=== PATIENT | male | born 1970 | race Hispanic/Latino ===

== ENCOUNTER 2023-07-09 16:50 | Inpatient (IN) | payer SELFPAY ==
[~2023-07-09 16:50] MED LIST: Iopamidol-370 76% 500 ML MDV (1 ML CHARGE) ONE
[2023-07-09] MEDS ORDERED: Lidocaine 1% PF 5 ML VIAL ONE (17:19)
[2023-07-09] MEDS ORDERED: Piperacillin/Tazobactam 4.5 GM VIAL ONE (17:27)
[2023-07-09] MEDS ORDERED: Sodium Chloride 0.9% 100 ML ONE (17:27)
[2023-07-09 17:52] LABS: #Basophils 0.1 thou/uL (0.0-0.2); #Eosinphils 0.2 thou/uL (0.0-0.7); #Monocytes 0.9 thou/uL (0.11-0.59); #Neutrophils 13.3 thou/uL (1.40-6.50); %Basophils 0.4 % (0.0-1.0); %Eosinophils 0.9 % (0.0-10.0); %Lymphocytes 13.4 % (21.0-51.0); %Monocytes 5.5 % (0.0-10.0); %Neutrophils 79.2 % (42.0-75.0); ALT (SGPT) 10 U/L (8-55); AST (SGOT) 10 U/L (5-34); Albumin 3.4 g/dL (3.5-5.0); Alkaline Phosphatase 81 U/L (40-110); Anion Gap 10 mmol/L (10-20); BUN (Urea Nitrogen) 13 mg/dL (8.4-25.7); Bilirubin, Total 0.8 mg/dL (0.2-1.2); Calc. Creatinine Clearance 0 mL/min (70-130); Calcium 9.1 mg/dL (7.8-10.44); Carbon Dioxide 28 mmol/L (22-29); Chloride 101 mmol/L (98-107); Estimated GFR 96; Globulin 4.3 g/dL (2.4-3.5); Glucose 276 mg/dL (70-105); Hematocrit 42.4 % (42.0-52.0); Hemoglobin 15.3 g/dL (14.0-18.0); Mean Corpuscular HGB CONC 36.1 g/dL (32.0-36.0); Mean Corpuscular Hemoglobin 31.7 pg (27.0-31.0); Mean Platelet Volume 10.5 fL (7.4-10.4); Platelet Count 361 10x3/uL (130-400); Potassium 3.9 mmol/L (3.5-5.1); Protein, Total 7.7 g/dL (6.0-8.3); RBC Distribution Width 11.3 % (11.5-14.5); Red Blood Cell (RBC) Count 4.82 mill/uL (4.70-6.10); Sodium 135 mmol/L (136-145); White Blood Cell (WBC) Count 16.8 10x3/uL (4.8-10.8)
[2023-07-09 17:54] LABS: CRP (Inflammatory) 7.69 mg/dL (= or < 0.5); Magnesium 2.1 mg/dL (1.6-2.6)
[2023-07-09] MEDS ORDERED: Vancomycin (BATCH) 2 GM/500 ML BAG ONE (18:55)
[2023-07-09] MEDS ORDERED: Dextrose 5% in Water 1,000 ML IV PRN (19:53)
[2023-07-09] MEDS ORDERED: Ondansetron PF 4 MG/2 ML Vial IVP PRN (19:53)
[2023-07-09] MEDS ORDERED: Dextrose 50% Abboject 50 ML SYRINGE SLOW IVP PRN (19:53)
[2023-07-09] MEDS ORDERED: Glucagon 1 MG/ML KIT IM PRN (19:53)
[2023-07-09] MEDS ORDERED: Enoxaparin 40 MG (0.4 mL) SYRINGE SC SCH (20:00)
[2023-07-09 21:00] LABS: Hemoglobin A1c 10.3 % (4.0-6.0)
[2023-07-09 21:14] VITALS: BMI 31.9
[2023-07-09] MEDS: Lisinopril 10 MG TAB PO SCH (21:48)
[2023-07-09] MEDS: HYDROcodone/Acetaminophen 10/325 mg Tablet PO PRN (21:48)
[2023-07-09] MEDS: HumaLOG 300 UNITS/3 ML VIAL SC PRN (21:49)
[2023-07-09] MEDS: Vancomycin 1 GM in Sodium Chloride 0.9% 250 ML 250 ML IVPB SCH (23:37)
[2023-07-09] MEDS: Piperacillin/Tazobactam 4.5 GM in Sodium Chloride 0.9% 100 ML IVPB SCH (23:38)
[2023-07-10] MEDS: Vancomycin (BATCH) 1.25 GM in Premix 1 BAG IVPB SCH (05:04)
[2023-07-10] MEDS: HumaLOG 300 UNITS/3 ML VIAL SC PRN (05:54)
[2023-07-10] MEDS ORDERED: Morphine 4 MG/ML VIAL SLOW IVP SCH (06:15)
[2023-07-10] MEDS: Lisinopril 10 MG TAB PO SCH (09:09)
[2023-07-10] MEDS: FLU VACC QS2023-24(6MOS UP)/PF 60 MCG/0.5 ML SYRINGE IM ONE (09:09)
[2023-07-10] MEDS ORDERED: CABG-Clindamycin/D5W 900 MG in Premix 1 BAG IVPB SCH (10:30)
[2023-07-10 10:44] LABS: #Basophils 0.1 thou/uL (0.0-0.2); #Eosinphils 0.1 thou/uL (0.0-0.7); #Neutrophils 14.7 thou/uL (1.40-6.50); %Basophils 0.3 % (0.0-1.0); %Eosinophils 0.6 % (0.0-10.0); %Lymphocytes 14.1 % (21.0-51.0); %Monocytes 5.5 % (0.0-10.0); %Neutrophils 78.9 % (42.0-75.0); Hematocrit 41.1 % (42.0-52.0); Hemoglobin 14.5 g/dL (14.0-18.0); Mean Corpuscular HGB CONC 35.3 g/dL (32.0-36.0); Mean Corpuscular Hemoglobin 31.7 pg (27.0-31.0); Mean Corpuscular Volume 89.7 fl (78.0-98.0); Mean Platelet Volume 10.1 fL (7.4-10.4); Platelet Count 335 10x3/uL (130-400); RBC Distribution Width 11.6 % (11.5-14.5); Red Blood Cell (RBC) Count 4.58 mill/uL (4.70-6.10)
[2023-07-10] MEDS ORDERED: fentaNYL PF 100 MCG/2 ML SYRINGE ONE (11:05)
[2023-07-10] MEDS ORDERED: Ondansetron PF 4 MG/2 ML Vial ONE (11:06)
[2023-07-10] MEDS ORDERED: Lidocaine 1% PF 5 ML VIAL ONE (11:06)
[2023-07-10] MEDS ORDERED: PROPOFOL 20 ML ONE ×2 (11:06→11:21)
[2023-07-10 11:20] LABS: Anion Gap 15 mmol/L (10-20); BUN (Urea Nitrogen) 13 mg/dL (8.4-25.7); Calc. Creatinine Clearance 122 mL/min (70-130); Calcium 8.7 mg/dL (7.8-10.44); Carbon Dioxide 24 mmol/L (22-29); Chloride 103 mmol/L (98-107); Estimated GFR 103; Glucose 189 mg/dL (70-105); Sodium 138 mmol/L (136-145)
[2023-07-10] MEDS ORDERED: PHENYLEPHRINE-NS 100 MCG/ML 10 ML SYRINGE ONE (11:35)
[2023-07-10] MEDS ORDERED: Promethazine HCl 25 MG/ML VIAL IM PRN ×2 (11:55→11:58)
[2023-07-10] MEDS ORDERED: fentaNYL 50 mcg/mL 1 mL Vial SLOW IVP PRN (11:55)
[2023-07-10] MEDS ORDERED: Ondansetron PF 4 MG/2 ML Vial IVP PRN (11:55)
[2023-07-10] MEDS ORDERED: Ipratropium/Albuterol 3 ML NEB NEB PRN (11:55)
[2023-07-10] MEDS ORDERED: Ondansetron HCl/PF 4 MG/2 ML Vial IVP PRN (11:58)
[2023-07-10] MEDS ORDERED: Magnevist 469MG/ML 20 ML VIAL ONE (12:08)
[2023-07-10] MEDS ORDERED: Acetaminophen 325 MG TAB ONE (12:50)
[2023-07-10] MEDS: Acetaminophen 325 MG TAB PO PRN (12:52)
[2023-07-10] MEDS: Acetaminophen 500 MG TAB PO SCH (15:45)
[2023-07-10 16:05] LABS: Bacteria/HPF None Seen HPF (None Seen); Bilirubin Negative (Negative); Blood, Urine 2+ (Negative); CAUTI Indications for Culture Fever or rigors; Clarity Clear (Clear); Glucose, Urine (Dipstick) 300 mg/dL (Negative); Ketone, Urine 20 mg/dL (Negative); Leukocyte 250 Leu/uL (Negative); Nitrite Negative (Negative); Protein, Urine (Dipstick) 100 mg/dL (Neg-Trace); Specific Gravity, Urine 1.035 (1.002-1.036); Squamous Epithelial 0-3 HPF (0-3); Urobilinogen Normal mg/dL (Less than 2); WBC/HPF 21-50 HPF (0-3)
[2023-07-10 16:07] LABS: Urine Culture Reflex Yes Yes
[2023-07-10] MEDS: Enoxaparin 40 MG (0.4 mL) SYRINGE SC SCH (19:54)
[2023-07-11 05:57] LABS: #Basophils 0.08 10x3/uL (0.0-0.2); %Basophils 0.4 % (0.0-1.0); %Eosinophils 0.7 % (0.0-10.0); %Lymphocytes 15.6 % (21.0-51.0); %Monocytes 5.8 % (0.0-10.0); Hematocrit 36.2 % (42.0-52.0); Hemoglobin 12.7 g/dL (14.0-18.0); Mean Corpuscular HGB CONC 35.1 g/dL (32.0-36.0); Mean Corpuscular Hemoglobin 31.8 pg (27.0-31.0); Mean Corpuscular Volume 90.7 fL (78.0-98.0); Platelet Count 275 10x3/uL (130-400); RBC Distribution Width 11.5 % (11.5-14.5); Red Blood Cell (RBC) Count 3.99 mill/uL (4.70-6.10)
[2023-07-11 06:15] LABS: Anion Gap 11 mmol/L (10-20); BUN (Urea Nitrogen) 13 mg/dL (8.4-25.7); CRP (Inflammatory) 11.68 mg/dL (= or < 0.5); Calc. Creatinine Clearance 125 mL/min (70-130); Calcium 8.1 mg/dL (7.8-10.44); Carbon Dioxide 26 mmol/L (22-29); Chloride 101 mmol/L (98-107); Estimated GFR 103; Glucose 200 mg/dL (70-105); Potassium 3.5 mmol/L (3.5-5.1); Sodium 134 mmol/L (136-145); Vancomycin, Random 20.2 ug/mL (See Comment)
[2023-07-11] MEDS: Morphine 2 MG/ML VIAL SLOW IVP PRN (10:10)
[2023-07-12] MEDS: Insulin Regular 300 UNITS/3 ML VIAL SC PRN (04:20)
[2023-07-12 05:54] LABS: #Basophils 0.09 10x3/uL (0.0-0.2); %Basophils 0.6 % (0.0-1.0); %Eosinophils 0.8 % (0.0-10.0); %Lymphocytes 14.8 % (21.0-51.0); %Neutrophils 77.1 % (42.0-75.0); Hematocrit 37.3 % (42.0-52.0); Hemoglobin 12.9 g/dL (14.0-18.0); Mean Corpuscular HGB CONC 34.6 g/dL (32.0-36.0); Mean Corpuscular Volume 89.7 fL (78.0-98.0); Mean Platelet Volume 10.1 fL (7.4-10.4); Platelet Count 291 10x3/uL (130-400); RBC Distribution Width 11.4 % (11.5-14.5); Red Blood Cell (RBC) Count 4.16 mill/uL (4.70-6.10)
[2023-07-12 06:13] LABS: Vancomycin, Random 13.7 ug/mL (See Comment)
[2023-07-12 06:22] LABS: Anion Gap 12 mmol/L (10-20); BUN (Urea Nitrogen) 11 mg/dL (8.4-25.7); Calc. Creatinine Clearance 81 mL/min (70-130); Calcium 8.2 mg/dL (7.8-10.44); Carbon Dioxide 25 mmol/L (22-29); Chloride 101 mmol/L (98-107); Estimated GFR 63; Glucose 221 mg/dL (70-105); Potassium 3.3 mmol/L (3.5-5.1); Sodium 135 mmol/L (136-145)
[2023-07-12] MEDS: Piperacillin/Tazobactam 3.375 GM in Sodium Chloride 0.9% 100 ML IVPB SCH (16:29)
[2023-07-12] MEDS: HYDROcodone/Acetaminophen 5/325 mg Tablet PO PRN (20:37)
[2023-07-12] MEDS: Vancomycin 1 GM in Premix 1 BAG IVPB SCH (20:38)
[2023-07-13 05:34] LABS: #Basophils 0.07 10x3/uL (0.0-0.2); %Basophils 0.5 % (0.0-1.0); %Eosinophils 2.2 % (0.0-10.0); %Lymphocytes 14.4 % (21.0-51.0); %Monocytes 5.9 % (0.0-10.0); %Neutrophils 76.4 % (42.0-75.0); Hemoglobin 13.1 g/dL (14.0-18.0); Mean Corpuscular HGB CONC 35.4 g/dL (32.0-36.0); Mean Corpuscular Hemoglobin 31.6 pg (27.0-31.0); Mean Corpuscular Volume 89.4 fL (78.0-98.0); Mean Platelet Volume 10.1 fL (7.4-10.4); Platelet Count 305 10x3/uL (130-400); RBC Distribution Width 11.5 % (11.5-14.5); Red Blood Cell (RBC) Count 4.14 mill/uL (4.70-6.10)
[2023-07-13 05:54] LABS: Anion Gap 13 mmol/L (10-20); BUN (Urea Nitrogen) 14 mg/dL (8.4-25.7); Calc. Creatinine Clearance 67 mL/min (70-130); Carbon Dioxide 24 mmol/L (22-29); Chloride 104 mmol/L (98-107); Estimated GFR 50; Glucose 203 mg/dL (70-105); Potassium 3.4 mmol/L (3.5-5.1); Sodium 138 mmol/L (136-145)
[2023-07-13 05:55] LABS: Vancomycin, Random 19.6 ug/mL (See Comment)
[2023-07-14 03:49] LABS: #Basophils 0.06 10x3/uL (0.0-0.2); %Basophils 0.4 % (0.0-1.0); %Eosinophils 1.4 % (0.0-10.0); %Lymphocytes 14.8 % (21.0-51.0); %Monocytes 6.1 % (0.0-10.0); %Neutrophils 76.8 % (42.0-75.0); Hematocrit 36.4 % (42.0-52.0); Hemoglobin 12.8 g/dL (14.0-18.0); Mean Corpuscular HGB CONC 35.2 g/dL (32.0-36.0); Mean Corpuscular Hemoglobin 31.2 pg (27.0-31.0); Mean Corpuscular Volume 88.8 fL (78.0-98.0); Platelet Count 302 10x3/uL (130-400); RBC Distribution Width 11.4 % (11.5-14.5)
[2023-07-14 04:09] LABS: Vancomycin, Random 17.3 ug/mL (See Comment)
[2023-07-14] MEDS: Vancomycin (BATCH) 1.5 GM in Premix 1 BAG IVPB SCH (06:16)
[2023-07-14] MEDS: Sodium Chloride 0.9% 1,000 ML IV SCH (09:48)
[2023-07-14] MEDS: Carvedilol 6.25 MG TAB PO SCH ×2 (09:49→16:46)
[2023-07-14] MEDS: Amlodipine 5 MG TAB PO SCH (09:49)
[2023-07-15 05:12] LABS: #Basophils 0.07 10x3/uL (0.0-0.2); %Basophils 0.5 % (0.0-1.0); %Eosinophils 1.6 % (0.0-10.0); %Lymphocytes 17.2 % (21.0-51.0); %Monocytes 5.8 % (0.0-10.0); %Neutrophils 74.4 % (42.0-75.0); Hematocrit 35.6 % (42.0-52.0); Hemoglobin 12.2 g/dL (14.0-18.0); Mean Corpuscular HGB CONC 34.3 g/dL (32.0-36.0); Mean Corpuscular Hemoglobin 30.8 pg (27.0-31.0); Mean Corpuscular Volume 89.9 fL (78.0-98.0); Mean Platelet Volume 9.9 fL (7.4-10.4); Platelet Count 303 10x3/uL (130-400); RBC Distribution Width 11.5 % (11.5-14.5); Red Blood Cell (RBC) Count 3.96 mill/uL (4.70-6.10)
[2023-07-15 05:58] LABS: ALT (SGPT) 11 U/L (8-55); AST (SGOT) 19 U/L (5-34); Albumin 2.9 g/dL (3.5-5.0); Alkaline Phosphatase 64 U/L (40-110); Anion Gap 14 mmol/L (10-20); BUN (Urea Nitrogen) 19 mg/dL (8.4-25.7); Bilirubin, Total 0.5 mg/dL (0.2-1.2); Calc. Creatinine Clearance 40 mL/min (70-130); Calcium 8.2 mg/dL (7.8-10.44); Carbon Dioxide 24 mmol/L (22-29); Chloride 105 mmol/L (98-107); Estimated GFR 27; Globulin 3.9 g/dL (2.4-3.5); Glucose 157 mg/dL (70-105); Potassium 3.3 mmol/L (3.5-5.1); Protein, Total 6.8 g/dL (6.0-8.3); Sodium 140 mmol/L (136-145)
[2023-07-16 05:44] LABS: #Basophils 0.08 10x3/uL (0.0-0.2); %Basophils 0.6 % (0.0-1.0); %Lymphocytes 16.4 % (21.0-51.0); %Monocytes 4.8 % (0.0-10.0); %Neutrophils 75.7 % (42.0-75.0); Hematocrit 36.3 % (42.0-52.0); Hemoglobin 12.6 g/dL (14.0-18.0); Mean Corpuscular HGB CONC 34.7 g/dL (32.0-36.0); Mean Corpuscular Hemoglobin 31.2 pg (27.0-31.0); Mean Corpuscular Volume 89.9 fL (78.0-98.0); Platelet Count 293 10x3/uL (130-400); RBC Distribution Width 11.6 % (11.5-14.5); Red Blood Cell (RBC) Count 4.04 mill/uL (4.70-6.10)
[2023-07-16 06:09] LABS: Anion Gap 13 mmol/L (10-20); BUN (Urea Nitrogen) 20 mg/dL (8.4-25.7); Calc. Creatinine Clearance 37 mL/min (70-130); Calcium 8.4 mg/dL (7.8-10.44); Carbon Dioxide 24 mmol/L (22-29); Chloride 106 mmol/L (98-107); Estimated GFR 24; Glucose 137 mg/dL (70-105); Potassium 3.3 mmol/L (3.5-5.1); Sodium 140 mmol/L (136-145)
[2023-07-16 09:51] LABS: Magnesium 2.5 mg/dL (1.6-2.6)
[2023-07-16] MEDS: Amlodipine 5 MG TAB PO SCH (10:05)
[2023-07-16 13:15] LABS: Bacteria/HPF None Seen HPF (None Seen); Bilirubin Negative (Negative); Blood, Urine Trace (Negative); Clarity Clear (Clear); Glucose, Urine (Dipstick) Normal (Negative); Ketone, Urine Trace mg/dL (Negative); Leukocyte Negative Leu/uL (Negative); Nitrite Negative (Negative); Protein, Urine (Dipstick) Negative (Neg-Trace); RBC/HPF 0-3 HPF (0-3); Specific Gravity, Urine 1.006 (1.002-1.036); Squamous Epithelial 0-3 HPF (0-3); Urobilinogen Normal mg/dL (Less than 2); WBC/HPF 0-3 HPF (0-3)
[2023-07-16 13:50] LABS: Creatinine, Urine 42.78 mg/dL (63-166)
[2023-07-16] MEDS: Carvedilol 6.25 MG TAB PO SCH (16:44)
[2023-07-17 04:22] LABS: #Basophils 0.08 10x3/uL (0.0-0.2); %Basophils 0.6 % (0.0-1.0); %Eosinophils 2.3 % (0.0-10.0); %Lymphocytes 15.4 % (21.0-51.0); %Monocytes 4.7 % (0.0-10.0); %Neutrophils 76.5 % (42.0-75.0); Hematocrit 35.5 % (42.0-52.0); Hemoglobin 12.3 g/dL (14.0-18.0); Mean Corpuscular HGB CONC 34.6 g/dL (32.0-36.0); Mean Corpuscular Volume 89.4 fL (78.0-98.0); Mean Platelet Volume 10.1 fL (7.4-10.4); Platelet Count 299 10x3/uL (130-400); RBC Distribution Width 11.7 % (11.5-14.5); Red Blood Cell (RBC) Count 3.97 mill/uL (4.70-6.10)
[2023-07-17 04:42] LABS: Anion Gap 14 mmol/L (10-20); BUN (Urea Nitrogen) 20 mg/dL (8.4-25.7); Calc. Creatinine Clearance 38 mL/min (70-130); Calcium 8.3 mg/dL (7.8-10.44); Carbon Dioxide 25 mmol/L (22-29); Chloride 105 mmol/L (98-107); Estimated GFR 25; Glucose 160 mg/dL (70-105); Potassium 3.3 mmol/L (3.5-5.1); Sodium 141 mmol/L (136-145)
[2023-07-17] MEDS: Potassium Chloride 20 MEQ TAB PO SCH (09:02)
[2023-07-17] MEDS: Amlodipine 5 MG TAB PO SCH ×2 (09:02→10:15)
[2023-07-17 09:34] VITALS: TEMP 98.9
[2023-07-17 16:08] VITALS: BP 156/89
[2023-07-18] MEDS ORDERED: Amlodipine 5 MG TAB PO SCH (09:00)
== END 2023-07-17 18:25 | disposition home or self-care (01) | DRG 854 ==
LOC: ERS 16:50 → T4-B 19:56
PROVIDERS: ADMIT Internal Medicine; ATTEND Hospitalist
PROC: 3E03329 Introduction of Other Anti-infective into Peripheral Vein, Percutaneous Approach (ICD-10-PCS; 2023-07-09)
PROC: 0JBR0ZZ Excision of Left Foot Subcutaneous Tissue and Fascia, Open Approach (ICD-10-PCS; principal; 2023-07-10)
PROC: 0J9R0ZZ Drainage of Left Foot Subcutaneous Tissue and Fascia, Open Approach (ICD-10-PCS; 2023-07-10)
DX: A41.81 Sepsis due to Enterococcus (principal); L02.612 Cutaneous abscess of left foot; L97.929 Non-pressure chronic ulcer of unspecified part of left lower leg with unspecified severity; L03.116 Cellulitis of left lower limb; T81.89XA Other complications of procedures, not elsewhere classified, initial encounter; E11.621 Type 2 diabetes mellitus with foot ulcer; J43.9 Emphysema, unspecified; E66.9 Obesity, unspecified; L08.9 Local infection of the skin and subcutaneous tissue, unspecified; R03.0 Elevated blood-pressure reading, without diagnosis of hypertension; E11.65 Type 2 diabetes mellitus with hyperglycemia; E11.628 Type 2 diabetes mellitus with other skin complications; Z68.32 Body mass index [BMI] 32.0-32.9, adult
CPT/HCPCS: 10061; 36415; 36416; 71045; 76770; 80048; 80053; 80202; 81001; 82565; 82570; 83036; 83605; 83735; 84145; 84156; 84300; 85025; 86140; 87040; 87070; 87077; 87086; 87186; 87205; 93005; 93976; 96365; 96366; 96367; 97139; A9579; J1650; J1815; J2272; J2405; J2543; J2704; J3370; J3370-JW; J3490; J7050; Q9967

== ENCOUNTER 2025-03-30 07:35 | Emergency (ER) | payer OTHER | END 2025-03-30 09:07 | disposition home or self-care (01) | LOC: ERS 07:35 | DX: S20.211A Contusion of right front wall of thorax, initial encounter (principal); S69.81XA Other specified injuries of right wrist, hand and finger(s), initial encounter; E11.9 Type 2 diabetes mellitus without complications; I10 Essential (primary) hypertension; V89.2XXA Person injured in unspecified motor-vehicle accident, traffic, initial encounter | CPT/HCPCS: 71045; 94760; G0390 ==